=== PATIENT | female | born 1960 | race Caucasian/White ===

== ENCOUNTER 2017-06-03 08:22 | Emergency (ER) | payer BC ==
[~2017-06-03] VITALS: Ht 148.6 cm; Wt 99.1 kg
[~2017-06-03 08:22] MED LIST: ADVAIR 250-501 EACH IH; B COMPLEX1 TAB PO; BIOTIN5 M1 PO; BLACK COHOSH; CENTRUM SILVER PO; CITRACAL200 M1 PO; GLUCOSAMINE CHO PO; MOBIC15 MG PO; SERTRALINE HCL50 MG PO; SINGULAIR PO; TUMS300 MG( 75 PO; VALTREX PO; VITAMIN B6200 MG PO; VITAMIN D-32000 UNIT PO; ZOLOFT100 MG PO
[2017-06-03 09:01] LABS: URINE SOURCE CLEAN CATCH
[2017-06-03 09:06] LABS: URINE APPEARANCE CLEAR; URINE BILIRUBIN NEG (NEG); URINE BLOOD NEG (NEG); URINE COLOR YELLOW; URINE GLUCOSE NEG (NEG); URINE KETONE NEG (NEG); URINE LEUKOCYTE ESTERASE NEG (NEG); URINE NITRATE NEG (NEG); URINE PROTEIN NEG (NEG); URINE SPECIFIC GRAVITY 1.006 (1.003-1.035); URINE UROBILINOGEN 0.2 MG/DL (NEG)
[2017-06-03 09:10] LABS: CULTURE INDICATED? NO
[2017-06-21] MEDS ORDERED: ADVAIR 250-501 EAC1 INH (08:43)
[2017-06-21] MEDS ORDERED: SINGULAIR PO (08:43)
[2017-06-21] MEDS ORDERED: MULTI VITAMIN1 EACH PO (08:44)
[2017-06-21] MEDS ORDERED: VALTREX500 MG DOB (08:44)
[2017-06-21] MEDS ORDERED: BELSOMRA10 MG PO (08:44)
[2017-06-21] MEDS ORDERED: BAYER CHEWABLE81 MG PO (08:45)
[2017-06-21] MEDS ORDERED: BIOTIN10 MG PO (08:45)
[2017-06-21] MEDS ORDERED: POTASSIUM MAGNESIUM (08:46)
[2017-06-21] MEDS ORDERED: VITAMIN D32000 UNIT PO (08:47)
[2017-06-21] MEDS ORDERED: TURMERIC500 M1 (08:47)
[2017-06-21] MEDS ORDERED: CITRACAL + D E1 EACH PO (08:48)
[2017-06-21] MEDS ORDERED: FLONASE 0.05% N16 GM (08:48)
[2017-06-21] MEDS ORDERED: PROAIR HFA8.5 GM INH (08:49)
[2017-06-21] MEDS ORDERED: IBUPROFEN800 MG PO (08:50)
[2017-06-21] MEDS ORDERED: METFORMIN (08:51)
[2017-06-21] MEDS ORDERED: FLEXERIL10 MG PO (08:51)
[2017-06-21] MEDS ORDERED: COZAAR25 MG PO (08:51)
== END 2017-06-03 09:33 | disposition home or self-care (01) ==
LOC: CED 08:22
PROVIDERS: Emergency Medicine
DX: M54.5 Low back pain (principal); I10 Essential (primary) hypertension; Z90.710 Acquired absence of both cervix and uterus; Z88.5 Allergy status to narcotic agent
CPT/HCPCS: 81003; 99283

== ENCOUNTER → 2017-06-21 | Day surgery (SDC) | payer BC ==
[~2017-06-21] MED LIST changes: +ADVAIR 250-501 EAC1 INH; +BAYER CHEWABLE81 MG PO; +BELSOMRA10 MG PO; +BIOTIN10 MG PO; +CITRACAL + D E1 EACH PO; +COZAAR25 MG PO; +FLEXERIL10 MG PO; +FLONASE 0.05% N16 GM; +IBUPROFEN800 MG PO; +METFORMIN; +MULTI VITAMIN1 EACH PO; +POTASSIUM MAGNESIUM; +PROAIR HFA8.5 GM INH; +TURMERIC500 M1; +VALTREX500 MG DOB; +VITAMIN D32000 UNIT PO
--- NOTE | ~2017-06-21 | OR ---
Unit #: [id number] #: [id number] Patient: KENAN KIDD [id number] [address] [place], [place] [address] [id number] MR#: [id number] NAME: KENAN KIDD ROOM: Date of Procedure: 06/21/2017 Admission Date: 06/21/2017 Surgeon: Sudhir Suarez M.D. : 1960 Attending Physician: Sudhir Suarez M.D. Primary Care Physician: Vickie Diaz M.D. OPERATIVE REPORT PRIMARY CARE PHYSICIAN Vickie Diaz M.D. PREOPERATIVE DIAGNOSES Personal history of colon polyps and family history of colon polyps in her sister. PROCEDURE PERFORMED Colonoscopy up to cecum with good prep and visualization. POSTOPERATIVE DIAGNOSES The patient had scant sigmoid diverticula. Otherwise, normal examination up to cecum. The quality of the prep was good. RECOMMENDATIONS Repeat colonoscopy in 5 years. SEDATION USED MAC. DESCRIPTION OF PROCEDURE Following detailed explanation of the potential risks and complications of a colonoscopy, namely perforation, bleeding, and complications related to sedation, the patient was brought to GI lab and laid in the left lateral decubitus position. A digital rectal examination was performed, which was normal. Lubricated tip of the Olympus video colonoscope was inserted through the anus and advanced under direct vision. The scope was advanced and passed up to sigmoid into descending colon. Scant small diverticula were seen in this area. The scope tip was then navigated all the way up to cecum with visualization of ileocecal valve and the appendiceal orifice. Preparation was good with good visualization and photodocumentation was obtained. Successive segments of the colonic mucosa were examined upon withdrawal and appeared unremarkable. There being no polyps, mass lesions, or AVMs. Scant diverticula in the sigmoid colon again noted. The patient did not have any hemorrhoids at anal verge. The scope was then withdrawn. The patient returned to the recovery area. The patient tolerated the procedure without any postprocedure complications. Dictated by... Sudhir Suarez M.D. Unit #: [id number] #: [id number] Patient: KENAN KIDD SUGAR/eduardo TD: 06/21/2017 11:36 JOB #: [id number] OPERATIVE REPORT Page 1 of 1 X Sudhir Suarez MD PROCEDURE OPERATIVE NOTE
== END | disposition home or self-care (01) ==
LOC: COPS 07:36
DX: Z12.11 Encounter for screening for malignant neoplasm of colon (principal); K57.30 Diverticulosis of large intestine without perforation or abscess without bleeding; J45.909 Unspecified asthma, uncomplicated; Z86.010 Personal history of colon polyps; Z80.0 Family history of malignant neoplasm of digestive organs; Z90.710 Acquired absence of both cervix and uterus; Z90.89 Acquired absence of other organs; Z98.84 Bariatric surgery status; Z88.6 Allergy status to analgesic agent
CPT/HCPCS: J2250